=== PATIENT | female | born 1940 | race Caucasian/White ===

== ENCOUNTER 2016-09-26 11:21 | Emergency (ER) | payer MEDICARE ==
[2016-09-26 13:22] LABS: Basophils % (Auto) 0.6 % (0.0-1.8); Hematocrit 42.8 % (30.3-42.9); Hemoglobin 13.9 gm/dl (10.1-14.3); Mean Corpuscular HGB Conc 32 % (30-34); Mean Corpuscular Hemoglobin 28 pg (28-32); Mean Corpuscular Volume 87 fl (79-97); Platelet Count 207 K/mm3 (140-440); Red Blood Count 4.93 M/mm3 (3.65-5.03); Red Cell Distribution Width 13.6 % (13.2-15.2); White Blood Count 6.6 K/mm3 (4.5-11.0)
[2016-09-26 13:29] LABS: Anion Gap 17 mmol/L; BUN/Creatinine Ratio 15.71; Blood Urea Nitrogen 11 mg/dL (7-17); Carbon Dioxide 26 mmol/L (22-30); Chloride 102.6 mmol/L (98-107); Glucose 108 mg/dL (65-100); Potassium 4.2 mmol/L (3.6-5.0); Sodium 141 mmol/L (137-145)
--- NOTE | 2016-09-26 13:42 | XRay Report ---
PORTABLE CHEST: Productive cough. An AP portable view of the chest demonstrates a normal cardiac contour considering the limits of this technique. The lungs are clear with no evidence of infiltrate, fluid or failure. IMPRESSION: Normal portable chest.
--- NOTE | 2016-09-26 14:36 | Emergency Department Report ---
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 After long discussion with the patient, we can establish that she is here for a general checkup. She denies any recent chest pain or abdominal pain. She denied any fever or chills. Actually at this moment she states that she feels okay but has been feeling weak lately. The patient doesn't relate any specific symptoms. -: days(s) - Related Data Allergies Allergy/AdvReac Type Severity Reaction Status Date / Time No Known Allergies Allergy Unverified 09/26/16 12:37 ED Review of Systems ROS: Stated complaint: CHEST PAIN Other details as noted in HPI Constitutional: weakness. denies: chills, fever Eyes: denies: eye pain, eye discharge, vision change ENT: denies: ear pain, throat pain Respiratory: denies: cough, shortness of breath, wheezing Cardiovascular: denies: chest pain, palpitations Endocrine: no symptoms reported Gastrointestinal: denies: abdominal pain, nausea, diarrhea Genitourinary: denies: urgency, dysuria, discharge Musculoskeletal: denies: back pain, joint swelling, arthralgia Skin: denies: rash, lesions Neurological: denies: headache, weakness, paresthesias Psychiatric: denies: anxiety, depression Hematological/Lymphatic: denies: easy bleeding, easy bruising ED Past Medical Hx - Past Medical History Previous Medical History?: Yes Hx Hypertension: Yes Hx Diabetes: Yes Hx Arthritis: Yes Hx Asthma: Yes - Surgical History Past Surgical History?: No - Social History Smoking Status: Never Smoker Substance Use Type: None ED Physical Exam - General Limitations: Language Barrier General appearance: alert, in no apparent distress - Head Head exam: Present: atraumatic, normocephalic - Eye Eye exam: Present: normal appearance, PERRL, EOMI. Absent: scleral icterus - ENT ENT exam: Present: mucous membranes moist - Neck Neck exam: Present: normal inspection - Respiratory Respiratory exam: Present: normal lung sounds bilaterally. Absent: respiratory distress - Cardiovascular Cardiovascular Exam: Present: regular rate, normal rhythm. Absent: systolic murmur, diastolic murmur, rubs, gallop - GI/Abdominal GI/Abdominal exam: Present: soft, normal bowel sounds. Absent: distended, tenderness, guarding, rebound, rigid - Extremities Exam Extremities exam: Present: normal inspection - Back Exam Back exam: Present: normal inspection - Neurological Exam Neurological exam: Present: alert, oriented X3, CN II-XII intact. Absent: motor sensory deficit - Psychiatric Psychiatric exam: Present: normal affect, normal mood - Skin Skin exam: Present: warm, dry, intact, normal color. Absent: rash ED Course Vital Signs 09/26/16 09/26/16 12:32 16:37 Temperature 97 F L Pulse Rate 66 68 Respiratory 15 18 Rate Blood Pressure 143/80 Blood Pressure 165/88 [Left] O2 Sat by Pulse 100 100 Oximetry - Reevaluation(s) Reevaluation #1: Laboratory database cardiac markers and EKG were within normal limits. We'll check the patient's urinalysis. She will be referred to the outpatient setting for follow-up care. 09/26/16 15:05 ED Medical Decision Making - Lab Data Result diagrams: 09/26/16 12:53 09/26/16 12:53 Laboratory Results - last 24 hr 09/26/16 09/26/16 09/26/16 12:53 12:53 12:53 WBC 6.6 RBC 4.93 Hgb 13.9 Hct 42.8 MCV 87 MCH 28 MCHC 32 RDW 13.6 Plt Count 207 Lymph % (Auto) 31.6 Sac % (Auto) 8.6 H Eos % (Auto) 2.0 Baso % (Auto) 0.6 Lymph # 2.1 Sac # 0.6 Eos # 0.1 Baso # 0.0 Seg Neutrophils % 57.2 Seg Neutrophils # 3.8 Sodium 141 Potassium 4.2 Chloride 102.6 Carbon Dioxide 26 Anion Gap 17 BUN 11 Creatinine 0.7 Estimated GFR > 60 BUN/Creatinine Ratio 15.71 Glucose 108 H Lactic Acid 0.9 Calcium 9.0 Troponin T < 0.010 Laboratory Results - last 24 hr 09/26/16 09/26/16 09/26/16 12:53 12:53 12:53 WBC 6.6 RBC 4.93 Hgb 13.9 Hct 42.8 MCV 87 MCH 28 MCHC 32 RDW 13.6 Plt Count 207 Lymph % (Auto) 31.6 Sac % (Auto) 8.6 H Eos % (Auto) 2.0 Baso % (Auto) 0.6 Lymph # 2.1 Sac # 0.6 Eos # 0.1 Baso # 0.0 Seg Neutrophils % 57.2 Seg Neutrophils # 3.8 Sodium 141 Potassium 4.2 Chloride 102.6 Carbon Dioxide 26 Anion Gap 17 BUN 11 Creatinine 0.7 Estimated GFR > 60 BUN/Creatinine Ratio 15.71 Glucose 108 H Lactic Acid 0.9 Calcium 9.0 Troponin T < 0.010 Urine Bilirubin Urine RBC (Auto) 09/26/16 09/26/16 15:32 16:22 WBC RBC Hgb Hct MCV MCH MCHC RDW Plt Count Lymph % (Auto) Sac % (Auto) Eos % (Auto) Baso % (Auto) Lymph # Sac # Eos # Baso # Seg Neutrophils % Seg Neutrophils # Sodium Potassium Chloride Carbon Dioxide Anion Gap BUN Creatinine Estimated GFR BUN/Creatinine Ratio Glucose Lactic Acid Calcium Troponin T < 0.010 Urine Bilirubin Neg Urine RBC (Auto) 1.0 Laboratory Results - last 24 hr 09/26/16 09/26/16 09/26/16 12:53 12:53 12:53 WBC 6.6 RBC 4.93 Hgb 13.9 Hct 42.8 MCV 87 MCH 28 MCHC 32 RDW 13.6 Plt Count 207 Lymph % (Auto) 31.6 Sac % (Auto) 8.6 H Eos % (Auto) 2.0 Baso % (Auto) 0.6 Lymph # 2.1 Sac # 0.6 Eos # 0.1 Baso # 0.0 Seg Neutrophils % 57.2 Seg Neutrophils # 3.8 Sodium 141 Potassium 4.2 Chloride 102.6 Carbon Dioxide 26 Anion Gap 17 BUN 11 Creatinine 0.7 Estimated GFR > 60 BUN/Creatinine Ratio 15.71 Glucose 108 H Lactic Acid 0.9 Calcium 9.0 Troponin T < 0.010 Urine Color Urine Turbidity Urine pH Ur Specific [place] Urine Protein Urine Glucose (UA) Urine Ketones Urine Blood Urine Nitrite Urine Bilirubin Urine Urobilinogen Ur Leukocyte Esterase Urine WBC (Auto) Urine RBC (Auto) 09/26/16 09/26/16 15:32 16:22 WBC RBC Hgb Hct MCV MCH MCHC RDW Plt Count Lymph % (Auto) Sac % (Auto) Eos % (Auto) Baso % (Auto) Lymph # Sac # Eos # Baso # Seg Neutrophils % Seg Neutrophils # Sodium Potassium Chloride Carbon Dioxide Anion Gap BUN Creatinine Estimated GFR BUN/Creatinine Ratio Glucose Lactic Acid Calcium Troponin T < 0.010 Urine Color Colorless Urine Turbidity Clear Urine pH 7.0 Ur Specific [place] 1.001 L Urine Protein <15 mg/dl Urine Glucose (UA) Neg Urine Ketones Neg Urine Blood Neg Urine Nitrite Neg Urine Bilirubin Neg Urine Urobilinogen < 2.0 Ur Leukocyte Esterase Neg Urine WBC (Auto) 0.0 Urine RBC (Auto) 1.0 - EKG Data -: EKG Interpreted by Me EKG shows normal: sinus rhythm, axis, intervals, QRS complexes, ST-T waves Rate: normal - EKG Data Interpretation: normal EKG - Radiology Data Radiology results: report reviewed interpreted by me: naf cxr Critical care attestation.: If time is entered above; I have spent that time in minutes in the direct care of this critically ill patient, excluding procedure time. ED Disposition Clinical Impression: Generalized weakness Disposition: DISCHARGED TO HOME OR SELFCARE Is pt being admited?: No Does the pt Need Aspirin: No Condition: Stable Instructions: Weakness (ED) Additional Instructions: Further evaluation with her primary care physician is recommended. Return any acute change or problem. Referrals: PRIMARY CARE, [Primary Care Provider] - 2-3 Days Time of Disposition: 16:53
[2016-09-26 16:31] LABS: Bilirubin,Urine NEG (Negative); Blood,Urine NEG (Negative); Ketones,Urine NEG (Negative); Leukocyte Esterase,Urine NEG (Negative); Nitrite,Urine NEG (Negative); Protein,Urine <15 mg/dL mg/dL (Negative); Urobilinogen,Urine < 2.0 mg/dL (<2.0)
[2016-09-26 16:40] VITALS: BP 165/88
== END 2016-09-26 17:35 | disposition home or self-care (01) ==
LOC: ED 11:21
DX: R53.1 Weakness (principal); I10 Essential (primary) hypertension; E11.9 Type 2 diabetes mellitus without complications; J45.909 Unspecified asthma, uncomplicated
CPT/HCPCS: 36415; 71010; 80048; 81001; 82140; 84484; 85025; 87040; 93005; 93010